=== PATIENT | female | born 1985 | race Caucasian/White ===

== ENCOUNTER 2018-04-16 12:24 | Emergency (ER) | payer OTHER ==
[~2018-04-16] VITALS: Ht 162.6 cm; Wt 67.8 kg
[2018-04-16 13:15] VITALS: BP 123/60
--- NOTE | 2018-04-16 13:45 | NUR ---
PT AMBULATED TO ER BED 06
--- NOTE | 2018-04-16 13:50 | NUR ---
PT IS A 32 Y/O FEMALE WHO PRESENTS TO THE ED C/O ABD PAIN. PT STATES THAT IT STARTED X2 DAYS AGO, PT IS WORRIED FAMILY HAS DIVERTICULITIS AND GALLSTONES. PT REPORTS 8/10 SH[place] LLQ PAIN THAT DOES NOT RADIATE. ALSO REPORTS BLOODY STOOL AND PINK URINE. PT DENIES CP, SOB, N/V/D. PT AWAKE AND ALERT, RR EVEN/UNLABORED. PT REPOSITIONED FOR COMFORT, BED IN LOWEST POSITION. ER MD DR. CHRISTINE NOTIFIED. WILL CONTINUE TO MONITOR. HX; DENIES RX; DENIES
--- NOTE | 2018-04-16 15:00 | NUR ---
PT ON BED IN SUPINE POSITION, EYES OPEN, RESPIS E/U, DENIES CP/SOB AT THIS TIME. NO IDENTIFIED REQUESTS.
--- NOTE | 2018-04-16 15:00 | NUR ---
PT TO CT AT THIS TIME
--- NOTE | 2018-04-16 15:20 | NUR ---
RETURNED FROM CT
[2018-04-16 15:36] LABS: APPEARANCE,URINE CLEAR (CLEAR); BILIRUBIN,URINE NEGATIVE (NEGATIVE); BLOOD, URINE NEGATIVE (NEGATIVE); COLOR,URINE YELLOW (YELLOW); LEUKOCYTE ESTERASE ,URINE NEGATIVE (NEGATIVE); NITRITE, URINE NEGATIVE (NEGATIVE); UGLUCOSE NEGATIVE (NEGATIVE)
[2018-04-16 15:52] LABS: BASOPHILS % (AUTO) 0.7 % (0.0-2.0); EOSINOPHILS # (AUTO) 0.1 K/uL (0-0.4); EOSINOPHILS % (AUTO) 1.5 % (0.0-4.0); HEMATOCRIT 41.9 % (36-48); LYMPHOCYTES # (AUTO) 1.6 K/uL (2.5-16.5); MEAN CORPUSCULAR HEMOGLOBIN 30 pg (27-31); MEAN CORPUSCULAR HGB CONC 34 g/dL (33-37); MEAN CORPUSCULAR VOLUME 88.3 fL (80-94); MONOCYTES # (AUTO) 0.4 K/uL (0.8-1.0); MONOCYTES % (AUTO) 7.1 % (1.7-9.3); NEUTROPHILS # (AUTO) 3.7 K/uL (1.8-7.7); NEUTROPHILS % (AUTO) 63.7 % (42.2-75.2); PLATELET COUNT (AUTO) 265 K/uL (140-450); RED BLOOD CELL COUNT(AUTO) 4.74 MIL/uL (4.20-5.40); RED CELL DISTRIBUTION WIDTH 12.9 % (11.6-13.7); WHITE BLOOD COUNT (AUTO) 5.8 K/uL (4.8-10.8)
[2018-04-16 15:54] LABS: ANION GAP 11.1 (8-16); CARBON DIOXIDE 27.8 mmol/L (21-32); CREATININE 0.7 mg/dL (0.6-1.3); POTASSIUM 3.9 mmol/L (3.5-5.1)
[2018-04-16 15:56] LABS: TOTAL BILIRUBIN 0.4 mg/dL (0.0-1.0)
[2018-04-16 15:57] LABS: ALBUMIN 4.3 g/dL (3.4-5.0)
--- NOTE | 2018-04-16 16:00 | NUR ---
PT ON BED IN SUPINE POSITION, EYES OPEN, RESPIS E/U, DENIES CP/SOB AT THIS TIME. NO IDENTIFIED REQUESTS.
--- NOTE | 2018-04-16 16:21 | NUR ---
US AT BEDSIDE
[2018-04-16 17:45] VITALS: BP 112/76
== END 2018-04-16 17:46 | disposition home or self-care (01) ==
LOC: MED 12:24
DX: R10.32 Left lower quadrant pain (principal); K59.00 Constipation, unspecified; K92.1 Melena; C16.9 Malignant neoplasm of stomach, unspecified
CPT/HCPCS: 36415; 74176; 76830; 80053; 81003; 81025; 83605; 85025; 87040; 93976; 99284; Q0092